=== PATIENT | female | born 1935 | race Caucasian/White ===

== ENCOUNTER 2016-09-04 06:57 | Emergency (ER) | payer OTHER, MEDICARE ==
[~2016-09-04] VITALS: Ht 165.1 cm; Wt 92.5 kg
--- NOTE | 2016-09-04 07:32 | ED HAND/WRIST INJURY COMPLAINT ---
History of Present Illness General Chief Complaint: Hand or Wrist Injury Stated Complaint: RT FOREARM PAIN NO KNOWN INJ Source: patient, family Exam Limitations: no limitations Vital Signs & Intake/Output Vital Signs & Intake/Output Vital Signs Date Time Temp Pulse Resp B/P B/P Pulse O2 O2 Flow FiO2 Mean Ox Delivery Rate 09/04 0724 98.9 67 15 128/68 100 Room Air Allergies Coded Allergies: aspirin (Intermediate, DIARRHEA 09/04/16) Triage Note: PT TO ED FOR R HAND AND R WRIST PAIN SINCE TUESDAY, PT REPORTS SHE HAS BEEN USING HER CANE HEAVILY WITH R HAND RECENTLY AND HAS NOTICED PAIN INCREASING. 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 HAND APPEARS SWOLLEN, NORMAL ROM, NORMAL PULSES. Triage Nurses Notes Reviewed? yes HPI: Patient walks with a cane in her right hand. Since Tuesday she has had been having pain to her right wrist with movement. There is no radiation of the pain. The pain is throbbing in nature. She rates the pain as 8 out of 10. Patient took Percocet without any relief. There is no known trauma. Patient comes in for evaluation. Past History Travel History Traveled to [place] past 21 day No Medical History Any Pertinent Medical History? see below for history Neurological: NONE EENT: NONE Cardiovascular: hypertension Respiratory: COPD, emphysema, SLEEP APNEA Gastrointestinal: NONE Hepatic: NONE Renal: NONE Musculoskeletal: NONE Psychiatric: NONE Endocrine: NONE Blood Disorders: NONE Cancer(s): LUNG CA IN REMISSION Surgical History Surgical History: non-contributory Psychosocial History What is your primary language Cuban Tobacco Use: Quit >30 days ago Daily Tobacco Use Amount/Type: => 5 Cigarettes daily ETOH Use: occasional use Illicit Drug Use: denies illicit drug use Family History Hx Contributory? No Review of Systems Review of Systems Constitutional: Reports: no symptoms. Respiratory: Reports: no symptoms. Cardiovascular: Reports: no symptoms. GI: Reports: no symptoms. Musculoskeletal: Reports: see HPI, joint pain, joint swelling. Neurological/Psychological: Reports: no symptoms. Immunologic/Allergic: Reports: no symptoms. Physical Exam Physical Exam General Appearance: well developed/nourished, alert, awake, anxious, mild distress Eyes: Bilateral: PERRL, EOMI. Ears, Nose, Throat: normal pharynx, normal ENT inspection, hearing grossly normal Cardiovascular/Respiratory: normal breath sounds, normal peripheral pulses, regular rate/rhythm, no respiratory distress Elbow Right: normal range of motion, normal inspection Forearm Right: normal range of motion, normal inspection Wrist Right: swelling, tenderness, TENDER WITH DEQUERVAIN'S TEST Hand Left: normal inspection, normal range of motion Hand Right: normal inspection, normal range of motion Neurologic/Tendon: no pulse deficit Progress Differential Diagnosis: dislocation, fracture, sprain, tenosynovitis Plan of Care: Orders Procedure Date/time Status XRY-WRIST COMPLETE-RIGHT 09/04 730 Active Diagnostic Imaging: Viewed by Me: Radiology Read. Discussed w/RAD: Radiology Read. Radiology Impression: PATIENT: RICKIE VALDEZ PRESENT AGE: 81 PATIENT ACCOUNT NO: [id number] : 33 LOCATION: [facility] ORDERING PHYSICIAN: JAGRUTI LYLES MD SERVICE DATE: 09/04/16 EXAM TYPE: RAD - XRY-WRIST COMPLETE-RIGHT EXAMINATION: WRIST 4 VIEWS, RIGHT CLINICAL INFORMATION: Right wrist pain. COMPARISON: None. TECHNIQUE: AP, lateral, oblique , scaphoid views of the right wrist are provided. FINDINGS: There are no fractures or dislocations. There is no displacement of the pronator fat pad. The proximal carpal row is intact. There is mild soft tissue swelling about the wrist. IMPRESSION: Mild soft tissue swelling without fracture or dislocation. DICTATED BY: YADIRA STEWART MD DATE/TIME DICTATED:09/04/16830 USER EXPERIENCE ANALYST:MELODY DATE/TIME TRANSCRIBED:09/04/16830 CONFIDENTIAL, DO NOT COPY WITHOUT APPROPRIATE AUTHORIZATION. <Electronically signed in Other Vendor System> SIGNED BY: YADIRA STEWART MD 09/04/16834 Departure Departure Disposition: HOME OR SELF CARE Condition: Stable Clinical Impression Primary Impression: De Quervain's disease (radial styloid tenosynovitis) Referrals: ALESIA CLAIRE,ANAMIKA Cummings (PCP/Family) LIS CEH MD Additional Instructions: WEAR SPLINT FOR COMFORT RETURN FOR ANY CONCERNS Departure Forms: Customer Survey General Discharge Information Procedures Splinting Location: RTIGHT WRIST Manual Alignment Performed: No Pre-Made Type: velcro Splint: thumb spica Splint Applied By: splint applied by me Pre-Proc Neuro Vasc Exam: normal Post-Proc Neuro Vasc Exam: normal
--- NOTE | 2016-09-04 08:35 | RADIOLOGY REPORT ---
EXAMINATION: WRIST 4 VIEWS, RIGHT CLINICAL INFORMATION: Right wrist pain. COMPARISON: None. TECHNIQUE: AP, lateral, oblique, scaphoid views of the right wrist are provided. FINDINGS: There are no fractures or dislocations. There is no displacement of the pronator fat pad. The proximal carpal row is intact. There is mild soft tissue swelling about the wrist. IMPRESSION: Mild soft tissue swelling without fracture or dislocation.
[2016-09-04 08:41] VITALS: BP 137/70
== END 2016-09-04 08:50 ==
LOC: ERH 06:57
DX: M65.4 Radial styloid tenosynovitis [de Quervain] (principal)
CPT/HCPCS: 73110-RT